=== PATIENT | male | born 1935 | race Caucasian/White ===

== ENCOUNTER → 2018-07-01 08:42 | Outpatient (CLI) | payer MEDICARE, OTHER, SELFPAY ==
[2018-07-01 11:07] LABS: Alanine Aminotransferase 50 IU/L (21-72); Aspartate Aminotransferase 39 IU/L (17-59)
== END ==
PROVIDERS: Visit Provider Family Medicine
DX: E78.5 Hyperlipidemia, unspecified (principal)
CPT/HCPCS: 36415; 84450; 84460